=== PATIENT | female | born 1980 | race African-American/Black ===

== ENCOUNTER 2021-02-24 19:36 | Emergency (ER) | payer MEDICAID ==
[~2021-02-24] VITALS: Ht 167.6 cm; Wt 100.0 kg
[2021-02-24] MEDS ORDERED: BACITRACIN ZINC OINT UDPKT TOP ONE (20:45)
[2021-02-24] MEDS ORDERED: IBUPROFEN 600MG TABLET PO ONE (20:45)
[2021-02-24 21:03] VITALS: BP 169/92
[2021-02-24] MEDS ORDERED: LIDOCAINE HCL 1% 20ML VIAL (Pyxis) INJ INFIL ONE (21:15)
[2021-02-24] MEDS ORDERED: T3 PO (22:56)
[2021-02-24] MEDS ORDERED: NAPR-681 MT (22:56)
== END 2021-02-24 23:12 | disposition home or self-care (01) ==
LOC: ER 19:36
DX: S62.617A Displaced fracture of proximal phalanx of left little finger, initial encounter for closed fracture (principal); W01.0XXA Fall on same level from slipping, tripping and stumbling without subsequent striking against object, initial encounter; Y93.89 Activity, other specified; Y92.89 Other specified places as the place of occurrence of the external cause
CPT/HCPCS: 73140; 99284